=== PATIENT | female | born 1975 | race Caucasian/White ===

== ENCOUNTER 2017-06-24 05:46 | Emergency (ER) | payer OTHER ==
[2017-06-24 05:51] VITALS: BMI 23.9
[2017-06-24 06:00] VITALS: BP 110/78; PULSE 82; RESP 18; TEMP 98.3; O2SAT 100
== END 2017-06-24 06:15 | disposition home or self-care (01) ==
LOC: H.ER 05:46
DX: N39.0 Urinary tract infection, site not specified (principal)